=== PATIENT | male | born 1965 | race Caucasian/White ===

== ENCOUNTER 2018-12-30 03:25 | Emergency (ER) | payer BC ==
[~2018-12-30] VITALS: Ht 175.3 cm; Wt 74.8 kg
[2018-12-30 03:27] VITALS: BP_SYST 126
[2018-12-30 04:40] VITALS: BP_SYST 126
== END 2018-12-30 04:40 | disposition home or self-care (01) ==
LOC: SED 03:25
DX: R42 Dizziness and giddiness (principal)
CPT/HCPCS: 99282